=== PATIENT | female | born 1965 | race Caucasian/White ===

== ENCOUNTER → 2020-11-30 | Outpatient (CLI) | payer BC, OTHER | LOC: EXRD 10:00 | DX: E04.1 Nontoxic single thyroid nodule (principal); K76.0 Fatty (change of) liver, not elsewhere classified; K76.89 Other specified diseases of liver | CPT/HCPCS: 76536; 76700 ==

== ENCOUNTER → 2021-10-19 | Outpatient (CLI) | payer BC | LOC: KOH-I 13:44 | DX: G45.9 Transient cerebral ischemic attack, unspecified (principal); M54.9 Dorsalgia, unspecified; M47.816 Spondylosis without myelopathy or radiculopathy, lumbar region | CPT/HCPCS: 70450; 72100; 93880 ==

== ENCOUNTER → 2022-01-17 | Outpatient (CLI) | payer BC | LOC: KOH-I 10:52 | DX: M25.551 Pain in right hip (principal); M25.552 Pain in left hip; M05.79 Rheumatoid arthritis with rheumatoid factor of multiple sites without organ or systems involvement; M18.9 Osteoarthritis of first carpometacarpal joint, unspecified; M47.816 Spondylosis without myelopathy or radiculopathy, lumbar region; Z86.39 Personal history of other endocrine, nutritional and metabolic disease; Z79.899 Other long term (current) drug therapy | CPT/HCPCS: 72114; 72220; 73522 ==

== ENCOUNTER → 2022-03-09 | Outpatient (CLI) | payer BC | LOC: US 08:45 → EMI 08:50 | DX: K76.0 Fatty (change of) liver, not elsewhere classified (principal); E04.1 Nontoxic single thyroid nodule; M25.551 Pain in right hip; R93.89 Abnormal findings on diagnostic imaging of other specified body structures; M70.61 Trochanteric bursitis, right hip | CPT/HCPCS: 72195; 76536; 76700 ==